=== PATIENT | female | born 1960 | race Caucasian/White ===

== ENCOUNTER 2020-03-19 07:39 | Day surgery (SDC) | payer MEDICARE, MEDICAID ==
[~2020-03-19 07:39] MED LIST: Lidocaine 1% with EPINEPHrine 1:100,000 50 ML MDV ONE; Sodium Chloride 0.9% 10 ML ONE; Sodium Tetradecyl Sulfate 1% 20 MG/2 ML SDV ONE
[2020-03-19] MEDS ORDERED: Propofol 200 MG/20 ML SDV ONE ×2 (08:39→10:31)
[2020-03-19] MEDS ORDERED: Midazolam 1 MG/ML 2 ML SDV ONE (08:39)
[2020-03-19] MEDS ORDERED: fentaNYL 100 MCG/2 ML SDV ONE (08:39)
[2020-03-19] MEDS ORDERED: Sodium Chloride 0.9% 1,000 ML IV SCH (08:45)
[2020-03-19] MEDS ORDERED: Lidocaine 1% w/EPINEPHrine 50 ML, Sodium Bicarbonate 5 MEQ in Sodium Chloride 0.9% 950 ML INJECT SCH (09:15)
[2020-03-19] MEDS ORDERED: Acetaminophen/HYDROcodone 325-5 MG Tab PO PRN (12:05)
[2020-03-19] MEDS ORDERED: fentaNYL 100 MCG/2 ML SDV IV PRN (12:06)
[2020-03-19] MEDS ORDERED: fentaNYL 100 MCG/2 ML SDV IVPUSH SCH (12:15)
[2020-03-19 13:22] VITALS: BP 102/73; PULSE 70
--- NOTE | 2020-03-20 08:09 | OR ---
DATE OF PROCEDURE: 03/19/2020 SURGEON: Desmond Terrazas MD PROCEDURES: 1. Radiofrequency ablation, left greater saphenous vein. 2. Radiofrequency ablation, right greater saphenous vein. 3. Radiofrequency ablation, right youth advocate. 4. Radiofrequency ablation, left youth advocate. 5. Sclerotherapy left leg, multiple. 6. Sclerotherapy right leg, multiple. 7. Compression wrap, left leg, 20 mmHg pressure. 8. Compression wrap, right leg, 20 mmHg pressure. COMPLICATIONS: None. DENTURE PROCESSOR: None. ANESTHESIA: MAC/local. RISKS: Risks, benefits, alternatives, and limitations including, but not limited to infection, bleeding, and perforation were explained to the patient, and DVT formation was explained to the patient who wished to proceed. PROCEDURE IN DETAIL: The patient was placed in supine position. Left greater saphenous vein was accessed at the level of the ankle. This was followed up through its tortuousities to the level of the knee, which then was unable to be traversed any further. After the 7- [place] sheath was introduced after anesthetizing with lidocaine and the RFA probe was placed, 2 cm jacket around this fluid was injected and verified a second and a third time. Direct even pressure was deployed as the probe was held x2 proximally and distally, and x1 in all other segments. The sheath and device were then removed. Direct pressure was held for 10 minutes. Dermabond was applied. The other leg was then performed in a same manner, same fashion, same technique and the same sequence using the same equipment. The perforators were also addressed using the same RFA generator device, injecting the tumescent fluid and then verifying. Sclerotherapy was then performed in the left and right legs using 0.33% sodium tetradactyl, 3 on the right, 4 on the left, always drawn back to ensure intravascular injection. No more than 2 mL was injected in 1 location. Two-layer, 2-stage compression wrapping was then performed in a distal to proximal gradient 20 mmHg. [id number] fashion was performed. The patient tolerated the procedure well. Desmond Terrazas MD /[id number]
== END 2020-03-19 13:50 | disposition home or self-care (01) ==
LOC: JP.SDS 07:39
PROVIDERS: ATTEND Surgery
DX: I87.2 Venous insufficiency (chronic) (peripheral) (principal); R60.0 Localized edema; J45.909 Unspecified asthma, uncomplicated; G89.29 Other chronic pain; G62.9 Polyneuropathy, unspecified; E55.9 Vitamin D deficiency, unspecified; E87.6 Hypokalemia; M06.9 Rheumatoid arthritis, unspecified; I10 Essential (primary) hypertension; Z90.49 Acquired absence of other specified parts of digestive tract; Z98.890 Other specified postprocedural states; Z79.899 Other long term (current) drug therapy; Z88.8 Allergy status to other drugs, medicaments and biological substances; Z88.5 Allergy status to narcotic agent; Z88.2 Allergy status to sulfonamides; Z88.1 Allergy status to other antibiotic agents; Z91.040 Latex allergy status; Z87.891 Personal history of nicotine dependence
CPT/HCPCS: 36471; 36475; 36476; A9270; J1642; J2250; J2704; J3010; J7030; J3490